=== PATIENT | male | born 1965 | race Caucasian/White ===

== ENCOUNTER 2017-08-19 20:35 | Observation (INO) | payer BC ==
--- NOTE | 2017-08-19 20:50 | EDM.PDOC ---
ED HPI GENERAL MEDICAL PROBLEM - General Chief Complaint: Chest Pain Stated Complaint: CHEST PRESSURE,SOB Time Seen by Provider: 08/19/17 20:50 Source of Information: Reports: Patient, Old Records, RN History Limitations: Reports: No Limitations - History of Present Illness INITIAL COMMENTS - FREE TEXT/NARRATIVE: 51 yo male presents with chest pressure since about 4 pm today. Mild SOB. Gets slight relief with rest. No change with eating. Had a heart cath 5+ yrs ago that was negative. Smokes 1 ppd. No hyperlipidemia or DM. FHx is positive for CAD. No calf pain or swelling. Worked hard outside yesterday without sx's. Onset of sx's today while watching TV. Onset: Today Onset Date: 08/19/17 Onset Time: 16:00 Duration: Hour(s): Location: Reports: Chest Quality: Reports: Pressure Severity: Moderate Improves with: Reports: Rest Worsens with: Reports: Movement (exertion) Context: Reports: Other (unknown) Associated Symptoms: Reports: Chest Pain, Shortness of Breath. 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) chest pain/pressure Pain Score (Numeric/FACES): 3 - Related Data Allergies Allergy/AdvReac Type Severity Reaction Status Date / Time No Known Allergies Allergy Verified 08/19/17 20:44 Home Meds: Home Meds Etanercept [Enbrel] 50 mg SQ WEEKLY 01/08/15 [History] Ibuprofen [Advil] 800 mg PO ASDIRECTED PRN 01/08/15 [History] Social & Family History - Tobacco Use Smoking Status *Q: Former Smoker Years of Tobacco use: 33 Used Tobacco, but Quit: No Month Tobacco Last Used: December Second Hand Smoke Exposure: No - Alcohol Use Days Per Week of Alcohol Use: 1 Number of Drinks Per Day: 2 Total Drinks Per Week: 2 - Recreational Drug Use Recreational Drug Use: No ED ROS GENERAL - Review of Systems Review Of Systems: See Below Constitutional: Reports: No Symptoms HEENT: Reports: No Symptoms Respiratory: Reports: Shortness of Breath (mild with exertion). Denies: Wheezing, Pleuritic Chest Pain, Cough, Sputum, Hemoptysis Cardiovascular: Reports: Chest Pain Endocrine: Reports: No Symptoms GI/Abdominal: Reports: No Symptoms : Reports: No Symptoms Musculoskeletal: Reports: No Symptoms Skin: Reports: No Symptoms Neurological: Reports: No Symptoms Psychiatric: Reports: No Symptoms ED EXAM, GENERAL - Physical Exam Exam: See Below Exam Limited By: No Limitations General Appearance: Alert, WD/WN, No Apparent Distress Eye Exam: Bilateral Eye: Normal Inspection Ears: Normal External Exam, Normal Canal, Hearing Grossly Normal Ear Exam: Bilateral Ear: Auricle Normal, Canal Normal Nose: Normal Inspection, Normal Mucosa, No Blood Throat/Mouth: Normal Inspection, Normal Lips, Normal Oropharynx, Normal Voice, No Airway Compromise Head: Atraumatic, Normocephalic Neck: Normal Inspection, Supple, Non-Tender Respiratory/Chest: No Respiratory Distress, Lungs Clear, Normal Breath Sounds, No Accessory Muscle Use, Chest Non-Tender Cardiovascular: Regular Rate, Rhythm, No Edema GI/Abdominal: Normal Bowel Sounds, Soft, Non-Tender, No Distention Back Exam: Normal Inspection. No: CVA Tenderness (R), CVA Tenderness (L) Extremities: Normal Inspection, Normal Range of Motion, Non-Tender, No Pedal Edema Neurological: Alert, Oriented, CN II-XII Intact, Normal Cognition, No Motor/ Sensory Deficits Psychiatric: Normal Affect, Normal Mood Skin Exam: Warm, Dry, Intact, Normal Color, No Rash Lymphatic: No Adenopathy EKG INTERPRETATION EKG Date: 08/19/17 Time: 20:40 Rhythm: NSR Rate (Beats/Min): 86 [place]: Normal P-Wave: Present QRS: Normal ST-T: Normal QT: Normal Comparison: NA - No Prior EKG EKG Interpretation Comments: Flipped T's in lead III, otherwise normal. 2nd EKG done after 3 x NTG 0.4 mg SL and a decrease in his CP from 3-4/10 to 1-2 /10, ? slightly less inversion of T wave in lead III, otherwise unchanged. Course - Vital Signs Text/Narrative:: No change with GI cocktail po, pain reduced, but not gone after NTG SL x 3. Dr. Villalobos called @ 2202h Last Recorded V/S: Last Vital Signs Temp 37.0 C 08/19/17 21:22 Pulse 88 08/19/17 22:46 Resp 16 08/19/17 22:11 BP 127/70 08/19/17 22:46 Pulse Ox 96 08/19/17 22:46 - Orders/Labs/Meds Orders: Active Orders 24 hr Category Date Time Status Cardiac Monitoring [RC] .As Directed Care 08/19/17 20:40 Active EKG Documentation Completion [RC] ASDIRECTED Care 08/19/17 20:39 Active EKG Documentation Completion [RC] ASDIRECTED Care 08/19/17 21:22 Active Chest 2V [CR] Stat Exams 08/19/17 21:44 Taken Sodium Chloride 0.9% [Saline Flush] Med 08/19/17 21:04 Active 10 ml FLUSH ASDIRECTED PRN Saline Lock Insert [OM.PC] Routine Oth 08/19/17 21:04 Ordered EKG 12 Lead [EK] Routine Ther 08/19/17 20:39 Ordered EKG 12 Lead [EK] Routine Ther 08/19/17 21:21 Ordered Medication Orders Sodium Chloride (Saline Flush) 10 ml FLUSH ASDIRECTED PRN PRN Reason: Keep Vein Open Last Admin: 08/19/17 21:08 Dose: 10 ml Labs: Laboratory Tests 08/19/17 08/19/17 08/19/17 Range/Units 21:12 21:12 21:12 WBC 9.7 (4.5-11.0) K/uL RBC 4.72 (4.30-5.90) M/uL Hgb 13.7 (12.0-15.0) g/dL Hct 39.4 L (40.0-54.0) % MCV 84 (80-98) fL MCH 29 (27-31) pg MCHC 35 (32-36) % Plt Count 261 (150-400) K/uL Sodium 141 (140-148) mmol/L Potassium 3.9 (3.6-5.2) mmol/L Chloride 107 (100-108) mmol/L Carbon Dioxide 26 (21-32) mmol/L Anion Gap 7.8 (5.0-14.0) mmol/L BUN 22 H (7-18) mg/dL Creatinine 1.1 (0.8-1.3) mg/dL Est Cr Clr Drug Dosing 93.41 mL/min Estimated GFR (MDRD) > 60 (>60) Glucose 145 H (74-106) mg/dL Calcium 8.9 (8.5-10.1) mg/dL Troponin I < 0.017 (0.000-0.056) ng/mL Urine Color Urine Appearance Urine pH (4.5-8.0) Ur Specific [place] (1.008-1.030) Urine Protein (NEGATIVE) mg/dL Urine Glucose (UA) (NEGATIVE) mg/dL Urine Ketones (NEGATIVE) mg/dL Urine Occult Blood (NEGATIVE) Urine Nitrite (NEGAITVE) Urine Bilirubin (NEGATIVE) Urine Urobilinogen (NORMAL) mg/dL Ur Leukocyte Esterase (NEGATIVE) Urine RBC (0-5) Urine WBC (0-5) Ur Epithelial Cells Amorphous Sediment Urine Bacteria Urine Mucus 08/19/17 Range/Units 21:35 WBC (4.5-11.0) K/uL RBC (4.30-5.90) M/uL Hgb (12.0-15.0) g/dL Hct (40.0-54.0) % MCV (80-98) fL MCH (27-31) pg MCHC (32-36) % Plt Count (150-400) K/uL Sodium (140-148) mmol/L Potassium (3.6-5.2) mmol/L Chloride (100-108) mmol/L Carbon Dioxide (21-32) mmol/L Anion Gap (5.0-14.0) mmol/L BUN (7-18) mg/dL Creatinine (0.8-1.3) mg/dL Est Cr Clr Drug Dosing mL/min Estimated GFR (MDRD) (>60) Glucose (74-106) mg/dL Calcium (8.5-10.1) mg/dL Troponin I (0.000-0.056) ng/mL Urine Color Yellow Urine Appearance Clear Urine pH 6.0 (4.5-8.0) Ur Specific [place] 1.025 (1.008-1.030) Urine Protein Negative (NEGATIVE) mg/dL Urine Glucose (UA) Normal (NEGATIVE) mg/dL Urine Ketones Negative (NEGATIVE) mg/dL Urine Occult Blood Negative (NEGATIVE) Urine Nitrite Negative (NEGAITVE) Urine Bilirubin Negative (NEGATIVE) Urine Urobilinogen Normal (NORMAL) mg/dL Ur Leukocyte Esterase Negative (NEGATIVE) Urine RBC 0-5 (0-5) Urine WBC 0-5 (0-5) Ur Epithelial Cells Rare Amorphous Sediment Not seen Urine Bacteria Not seen Urine Mucus Not seen Meds: Medications Generic Name Dose Route Start Last Admin Trade Name Freq PRN Reason Stop Dose Admin Sodium Chloride 10 ml 11/19/17 21:04 08/19/17 21:08 Saline Flush FLUSH 10 ml ASDIRECTED PRN Administration Keep Vein Open Discontinued Medications Generic Name Dose Route Start Last Admin Trade Name Fabricio PRN Reason Stop Dose Admin Acetaminophen 1,000 mg 08/19/17 21:20 08/19/17 21:25 Tylenol Extra Strength PO 08/19/17 21:21 1,000 mg ONETIME ONE Administration Aspirin 324 mg 08/19/17 21:03 08/19/17 21:06 Aspirin PO 08/19/17 21:04 324 mg ONETIME ONE Administration Aspirin Confirm 08/19/17 21:05 08/19/17 21:09 Aspirin Administered 08/19/17 21:06 Not Given Dose 324 mg .ROUTE .STK-MED ONE Al Hydroxide/Mg Hydroxide 15 0 ml 08/19/17 21:46 08/19/17 21:54 ml/ Lidocaine HCl 15 ml PO 08/19/17 21:47 30 ml ONETIME ONE Administration Nitroglycerin 0.4 mg 08/19/17 21:04 08/19/17 21:22 Nitrostat SL 0.4 mg Q5M PRN Administration Chest Pain Nitroglycerin Confirm 08/19/17 21:06 08/19/17 21:09 Nitrostat Administered 08/19/17 21:07 Not Given Dose 0.4 mg .ROUTE .STK-MED ONE Nitroglycerin 1 gm 08/19/17 22:16 08/19/17 22:25 Nitro-Bid 2% TOP 08/19/17 22:17 1 gm ONETIME ONE Administration Nitroglycerin 0.4 mg 08/19/17 22:16 08/19/17 22:18 Nitrostat SL 08/19/17 22:17 0.4 mg ONETIME ONE Administration - Radiology Interpretation Free Text/Narrative:: CXR- Departure - Departure Time of Disposition: 23:00 Disposition: Refer to Observation Condition: Fair Clinical Impression: Tobacco abuse Chest pain Qualifiers: Chest pain type: precordial pain Qualified Code(s): R07.2 - Precordial pain Referrals: Abdiel Trammell MD [Primary Care Provider] - Forms: ED Department Discharge - My Orders Last 24 Hours: My Active Orders 08/19/17 20:39 EKG Documentation Completion [RC] ASDIRECTED EKG 12 Lead [EK] Routine 08/19/17 20:40 Cardiac Monitoring [RC] .As Directed 08/19/17 21:04 Sodium Chloride 0.9% [Saline Flush] 10 ml FLUSH ASDIRECTED PRN Saline Lock Insert [OM.PC] Routine 08/19/17 21:21 EKG 12 Lead [EK] Routine 08/19/17 21:22 EKG Documentation Completion [RC] ASDIRECTED 08/19/17 21:44 Chest 2V [CR] Stat - Assessment/Plan Last 24 Hours: My Active Orders 08/19/17 20:39 EKG Documentation Completion [RC] ASDIRECTED EKG 12 Lead [EK] Routine 08/19/17 20:40 Cardiac Monitoring [RC] .As Directed 08/19/17 21:04 Sodium Chloride 0.9% [Saline Flush] 10 ml FLUSH ASDIRECTED PRN Saline Lock Insert [OM.PC] Routine 08/19/17 21:21 EKG 12 Lead [EK] Routine 08/19/17 21:22 EKG Documentation Completion [RC] ASDIRECTED 08/19/17 21:44 Chest 2V [CR] Stat
[2017-08-19] MEDS ORDERED: Aspirin 81 MG Tab.Chew PO ONE (21:03)
[2017-08-19] MEDS ORDERED: Sodium Chloride 0.9% 10 ML Syringe FLUSH PRN (21:04)
[2017-08-19] MEDS ORDERED: Aspirin 81 MG Tab.Chew ONE (21:05)
[2017-08-19] MEDS: Nitroglycerin 0.4 MG Tab.SL SL PRN ×3 (21:07→21:22)
[2017-08-19] MEDS: Nitroglycerin 0.4 MG Tab.SL ONE ×2 (21:09→21:17)
[2017-08-19] MEDS ORDERED: Acetaminophen 500 MG Tab PO ONE (21:20)
[2017-08-19] MEDS ORDERED: Alum Hydrox/Mag Hydrox/Simeth 15 ML, Lidocaine 2% 15 ML PO ONE ×2 (21:46)
[2017-08-19] MEDS ORDERED: Nitroglycerin 0.4 MG Tab.SL SL ONE (22:16)
[2017-08-19] MEDS ORDERED: Nitroglycerin 2% Oint 1 GM UD Packet TOP ONE (22:16)
[2017-08-19] MEDS ORDERED: Ondansetron 4 MG Tab.DIS PO PRN (23:04)
[2017-08-19] MEDS ORDERED: Acetaminophen 325 MG Tab PO PRN (23:04)
--- NOTE | 2017-08-19 23:04 | PCM.HP ---
H&P History of Present Illness - General Date of Service: 08/19/17 Admit Problem/Dx: Chest pain Source of Information: Patient History Limitations: Reports: No Limitations - History of Present Illness Initial Comments - Free Text/Narative: 51-year-old male with past medical history of premature arthritis on etanercept medication came to the ED with the complaining of chest pain. Chest pain started around 4 PM constantly present 3-4/10 in intensity, pressure-like pain no radiation patient had similar chest pains 5 years ago at the time patient was evaluated with the concerns of cardiac ID at that time patient angiogram results were within normal limit. Patient denies any previous history of hypertension, hyperlipidemia. Patient has family history of early CAD. Patient denies any joint pains, skin rash, recent flareup of rheumatoid arthritis. Patient denies any recent cough, congestion, runny nose. Patient denies pain increase with the respiratory movements. Patient is a full code In the ED patient EKG showed nonspecific ST T wave changes and troponins were within normal limits. Labs are at baseline. Patient received nitroglycerin, aspirin medication. Other review of systems are not significant chest pain/pressure Pain Score (Numeric/FACES): 3 - Related Data Allergies/Adverse Reactions: Allergies Allergy/AdvReac Type Severity Reaction Status Date / Time No Known Allergies Allergy Verified 08/19/17 20:44 Home Medications: Home Meds Etanercept [Enbrel] 50 mg SQ WEEKLY 01/08/15 [History] Ibuprofen [Advil] 800 mg PO ASDIRECTED PRN 01/08/15 [History] Past Medical History HEENT History: Reports: Impaired Vision Musculoskeletal History: Reports: RA Neurological History: Reports: Migraines Endocrine/Metabolic History: Reports: Other (See Below) Other Endocrine/Metabolic History: Thymic gland removed - Infectious Disease History Infectious Disease History: Reports: Chicken Pox, Mumps - Past Surgical History Cardiovascular Surgical History: Reports: Percutaneous Transluminal Angioplasty GI Surgical History: Reports: Hernia Repair/Other Musculoskeletal Surgical History: Reports: Arthroscopic Knee Social & Family History - Tobacco Use Smoking Status *Q: Former Smoker Years of Tobacco use: 33 Packs/Tins Daily: 1 Used Tobacco, but Quit: No Month Tobacco Last Used: December Second Hand Smoke Exposure: No - Caffeine Use Caffeine Use: Reports: Coffee, Soda - Alcohol Use Days Per Week of Alcohol Use: 1 Number of Drinks Per Day: 2 Total Drinks Per Week: 2 - Recreational Drug Use Recreational Drug Use: No H&P Review of Systems - Review of Systems: Review Of Systems: See Below General: Denies: Fever, Chills, Malaise HEENT: Denies: Contact Lenses, Dysphasia Pulmonary: Denies: Shortness of Breath, Wheezing, Pleuritic Chest Pain Cardiovascular: Reports: Chest Pain. Denies: Palpitations, Dyspnea on Exertion Gastrointestinal: Denies: Abdominal Pain, Anorexia, Black Stool Genitourinary: Denies: Dysuria, Frequency Musculoskeletal: Denies: Neck Pain, Shoulder Pain Skin: Denies: Cyanosis, Jaundice Psychiatric: Denies: Confusion, Depression Neurological: Denies: Confusion, Dizziness, Headache Hematologic/Lymphatic: Denies: Anemia, Easy Bleeding Immunologic: Denies: Anaphylaxis Exam - Exam Exam: See Below - Vital Signs Vital Signs: Last Vital Signs Temp 37.0 C 08/19/17 21:22 Pulse 88 08/19/17 22:46 Resp 16 08/19/17 22:11 BP 127/70 08/19/17 22:46 Pulse Ox 96 08/19/17 22:46 Weight: 108.862 kg - Exam Quality Assessment: No: Supplemental Oxygen General: Alert, Oriented HEENT: PERRLA, Conjunctiva Clear Neck: Supple, Trachea Midline Lungs: Clear to Auscultation, Normal Respiratory Effort Cardiovascular: Regular Rate, Regular Rhythm, Normal S1, Normal S2 GI/Abdominal Exam: Normal Bowel Sounds, Soft, Non-Tender, No Organomegaly Extremities: Normal Inspection, Normal Range of Motion, Non-Tender, No Pedal Edema, Normal Capillary Refill Skin: Warm, Dry, Intact Neuro Extensive - Mental Status: Alert, Oriented x3, Normal Mood/Affect, Normal Cognition, Memory Intact - Patient Data Lab Results Last 24 hrs: Laboratory Results - last 24 hr 08/19/17 08/19/17 08/19/17 Range/Units 21:12 21:12 21:12 WBC 9.7 (4.5-11.0) K/uL RBC 4.72 (4.30-5.90) M/uL Hgb 13.7 (12.0-15.0) g/dL Hct 39.4 L (40.0-54.0) % MCV 84 (80-98) fL MCH 29 (27-31) pg MCHC 35 (32-36) % Plt Count 261 (150-400) K/uL Sodium 141 (140-148) mmol/L Potassium 3.9 (3.6-5.2) mmol/L Chloride 107 (100-108) mmol/L Carbon Dioxide 26 (21-32) mmol/L Anion Gap 7.8 (5.0-14.0) mmol/L BUN 22 H (7-18) mg/dL Creatinine 1.1 (0.8-1.3) mg/dL Est Cr Clr Drug Dosing 93.41 mL/min Estimated GFR (MDRD) > 60 (>60) Glucose 145 H (74-106) mg/dL Calcium 8.9 (8.5-10.1) mg/dL Troponin I < 0.017 (0.000-0.056) ng/mL Urine Color Urine Appearance Urine pH (4.5-8.0) Ur Specific [place] (1.008-1.030) Urine Protein (NEGATIVE) mg/dL Urine Glucose (UA) (NEGATIVE) mg/dL Urine Ketones (NEGATIVE) mg/dL Urine Occult Blood (NEGATIVE) Urine Nitrite (NEGAITVE) Urine Bilirubin (NEGATIVE) Urine Urobilinogen (NORMAL) mg/dL Ur Leukocyte Esterase (NEGATIVE) Urine RBC (0-5) Urine WBC (0-5) Ur Epithelial Cells Amorphous Sediment Urine Bacteria Urine Mucus 08/19/17 Range/Units 21:35 WBC (4.5-11.0) K/uL RBC (4.30-5.90) M/uL Hgb (12.0-15.0) g/dL Hct (40.0-54.0) % MCV (80-98) fL MCH (27-31) pg MCHC (32-36) % Plt Count (150-400) K/uL Sodium (140-148) mmol/L Potassium (3.6-5.2) mmol/L Chloride (100-108) mmol/L Carbon Dioxide (21-32) mmol/L Anion Gap (5.0-14.0) mmol/L BUN (7-18) mg/dL Creatinine (0.8-1.3) mg/dL Est Cr Clr Drug Dosing mL/min Estimated GFR (MDRD) (>60) Glucose (74-106) mg/dL Calcium (8.5-10.1) mg/dL Troponin I (0.000-0.056) ng/mL Urine Color Yellow Urine Appearance Clear Urine pH 6.0 (4.5-8.0) Ur Specific [place] 1.025 (1.008-1.030) Urine Protein Negative (NEGATIVE) mg/dL Urine Glucose (UA) Normal (NEGATIVE) mg/dL Urine Ketones Negative (NEGATIVE) mg/dL Urine Occult Blood Negative (NEGATIVE) Urine Nitrite Negative (NEGAITVE) Urine Bilirubin Negative (NEGATIVE) Urine Urobilinogen Normal (NORMAL) mg/dL Ur Leukocyte Esterase Negative (NEGATIVE) Urine RBC 0-5 (0-5) Urine WBC 0-5 (0-5) Ur Epithelial Cells Rare Amorphous Sediment Not seen Urine Bacteria Not seen Urine Mucus Not seen Result Diagrams: 08/20/17 05:50 08/20/17 05:50 *Q Meaningful Use (ADM) - VTE *Q VTE Criteria *Q: - Stroke *Q Stroke Criteria *Q: - AMI *Q AMI Criteria *Q: - Problem List (1) Rheumatoid arthritis SNOMED Code(s): 71524065 ICD Code: M06.9 - RHEUMATOID ARTHRITIS, UNSPECIFIED Status: Acute Current Visit: Yes (2) Chest pain SNOMED Code(s): 76418844 ICD Code: R07.9 - CHEST PAIN, UNSPECIFIED Status: Acute Current Visit: Yes Qualifiers: Chest pain type: precordial pain Qualified Code(s): R07.2 - Precordial pain (3) Chronic migraine without aura SNOMED Code(s): 35233752 ICD Code: G43.709 - CHRONIC MIGRAINE W/O AURA, NOT INTRACTABLE, W/O STAT MIGR Status: Chronic Current Visit: No (4) Tobacco abuse SNOMED Code(s): 091136706 ICD Code: Z72.0 - TOBACCO USE Status: Chronic Current Visit: No Problem List Initiated/Reviewed/Updated: Yes Orders Last 24hrs: Active Orders 24 hr Category Date Time Status Cardiac Monitoring [RC] .As Directed Care 08/19/17 20:40 Active EKG Documentation Completion [RC] ASDIRECTED Care 08/19/17 20:39 Active EKG Documentation Completion [RC] ASDIRECTED Care 08/19/17 21:22 Active Chest 2V [CR] Stat Exams 08/19/17 21:44 Taken Sodium Chloride 0.9% [Saline Flush] Med 08/19/17 21:04 Active 10 ml FLUSH ASDIRECTED PRN Saline Lock Insert [OM.PC] Routine Oth 08/19/17 21:04 Ordered EKG 12 Lead [EK] Routine Ther 08/19/17 20:39 Ordered EKG 12 Lead [EK] Routine Ther 08/19/17 21:21 Ordered Medication Orders Sodium Chloride (Saline Flush) 10 ml FLUSH ASDIRECTED PRN PRN Reason: Keep Vein Open Last Admin: 08/19/17 21:08 Dose: 10 ml Assessment/Plan Comment:: 51-year-old male with a past medical history of rheumatoid arthritis came to the ED with the complaining of chest pain admitted in the hospital in observation status for the concerns of CAD. (2) Chest pain (1) Rheumatoid arthritis (4) Tobacco abuse Patient initial troponins were within normal limits We'll repeat troponin along with CK-MB Electrolytes results are within normal limits Creatinine is baseline Nonspecific ST-T wave changes Patient still complaining of chest pains Will place him on morphine as needed Tylenol as needed for breakthrough pains CBC, CMP tomorrow along with lipid panel and TSH (3) Chronic migraine without aura Will continue home medications DVT prophylaxis Lovenox 40 mg subcutaneous daily GI prophylaxis none CODE STATUS full code Diet cardiac diet
[2017-08-19] MEDS ORDERED: Morphine 2 MG/ML Syringe IVPUSH PRN (23:17)
[2017-08-20] MEDS ORDERED: Enoxaparin 40 MG/0.4 ML Syringe SUBCUT SCH (09:00)
[2017-08-20] MEDS ORDERED: Aspirin 81 MG Tab.EC PO SCH (09:00)
--- NOTE | 2017-08-20 10:16 | CR ---
Chest 2V HISTORY: Chest pain COMPARISON: 11/12/2011 chest x-ray. FINDINGS: Median sternotomy. Rotated film to the right. Density in the right middle lobe slightly obs curing the right heart border. This was present on prior study 2011 likely represents chronic atelect atic changes or scarring. There is bullous emphysematous changes at both lung apices also present on 2012 CT scan. I do not see new dense consolidation or effusion. Impression: Probable chronic scarring or atelectatic change in the right middle lobe. COPD changes.
[2017-08-20 10:58] VITALS: BP 143/80
--- NOTE | 2017-08-20 12:47 | PCM.DCSUM1 ---
Discharge Summary - Hospital Course Brief History: 51-year-old male with history of rheumatoid arthritis and tobacco dependence who presented with chest pain and was admitted for observation. - Discharge Data Discharge Date: 08/20/17 Discharge Disposition: Home, Self-Care 01 Condition: Good - Discharge Diagnosis/Problem(s) (1) Chest pain SNOMED Code(s): 16455604 ICD Code: R07.9 - CHEST PAIN, UNSPECIFIED Status: Acute Qualifiers: Chest pain type: precordial pain Qualified Code(s): R07.2 - Precordial pain (2) Rheumatoid arthritis SNOMED Code(s): 41333280 ICD Code: M06.9 - RHEUMATOID ARTHRITIS, UNSPECIFIED Status: Chronic Qualifiers: Rheumatoid arthritis location: unspecified site Rheumatoid factor presence : unspecified presence Qualified Code(s): M06.9 - Rheumatoid arthritis, unspecified - Patient Summary/Data Hospital Course: Angelito presented to the emergency room with chest pressure. Workup in the emergency room was reassuring with a normal EKG and normal troponin but given his concerning story he was admitted for observation and additional troponin levels. He was not completely pain-free at the time of admission but his pain was very mild. He reports fairly constant but mild discomfort present all night and even into this morning. The pain does not change with activity while he's been hospitalized. Serial troponin levels have been undetectable. No abnormalities were noted on telemetry. Vital signs have all been very stable with blood pressures and heart rates well within normal range. The exact cause for his discomfort is not entirely clear. He does have a couple of episodes recently that were related to exertion and given his smoking and family history risk he would benefit from additional risk stratification. I do believe he is safe for outpatient management at this point and can come back for an outpatient stress test because he is stable and doing well with no exertional symptoms. He is set up for an exercise Cardiolite stress test in 2 days. He will contact me if he has additional difficulties between now and the stress test. - Patient Instructions Diet: Regular Diet as Tolerated Activity: As Tolerated Driving: May Drive Today Showering/Bathing: May Shower Notify Provider of: Fever, Increased Pain, Nausea and/or Vomiting Other/Special Instructions: 1. You were in the hospital for observation after an episode of chest pain. There was no evidence that she had heart attack. I do recommend that you have further evaluation with a stress test and we have scheduled one for you on August 22 at 8:15 in the morning. 2. You may return to work tomorrow, August 21 with no restrictions. 3. Please seek medical attention if you have fever greater than 101, have worsening of your pain or shortness of breath that limits your activities of daily living. - Discharge Plan Home Medications: Home Meds Etanercept [Enbrel] 50 mg SQ WEEKLY 01/08/15 [History] Ibuprofen [Advil] 800 mg PO ASDIRECTED PRN 01/08/15 [History] Patient Handouts: Smoking Cessation, Tips for Success, [id number], Nonspecific Chest Pain Referrals: Abdiel Trammell MD [Primary Care Provider] - (as needed) - Discharge Summary/Plan Comment DC Time >30 min.: No (25) - Patient Data Vitals - Most Recent: Last Vital Signs Temp 36.6 C 08/20/17 10:57 Pulse 73 08/20/17 10:57 Resp 18 08/20/17 10:57 BP 143/80 H 08/20/17 10:57 Pulse Ox 95 08/20/17 10:57 Weight - Most Recent: 108.862 kg I&O - Last 24 hours: Intake & Output 08/19/17 08/20/17 08/20/17 22:59 06:59 14:59 Intake Total 480 Balance 480 Lab Results - Last 24 hrs: Laboratory Results - last 24 hr 08/20/17 08/20/17 08/20/17 Range/Units 01:02 05:50 05:50 WBC 8.0 (4.5-11.0) K/uL RBC 4.65 (4.30-5.90) M/uL Hgb 13.6 (12.0-15.0) g/dL Hct 39.0 L (40.0-54.0) % MCV 84 (80-98) fL MCH 29 (27-31) pg MCHC 35 (32-36) % Plt Count 263 (150-400) K/uL Neut % (Auto) 61 (36-66) % Lymph % (Auto) 29 (24-44) % [place] % (Auto) 7 H (2-6) % Eos % (Auto) 3 (2-4) % Baso % (Auto) 1 (0-1) % Sodium 139 L (140-148) mmol/L Potassium 3.8 (3.6-5.2) mmol/L Chloride 105 (100-108) mmol/L Carbon Dioxide 25 (21-32) mmol/L Anion Gap 12.8 (5.0-14.0) mmol/L BUN 20 H (7-18) mg/dL Creatinine 0.9 (0.8-1.3) mg/dL Est Cr Clr Drug Dosing 114.17 mL/min Estimated GFR (MDRD) > 60 (>60) Glucose 140 H (74-106) mg/dL Calcium 8.1 L (8.5-10.1) mg/dL Total Bilirubin 0.2 (0.2-1.0) mg/dL AST 20 (15-37) U/L ALT 34 (12-78) U/L Alkaline Phosphatase 65 (46-116) U/L CK-MB (CK-2) 1.4 (0-3.6) mg/mL Troponin I < 0.017 (0.000-0.056) ng/mL Total Protein 6.6 (6.4-8.2) g/dL Albumin 3.1 L (3.4-5.0) g/dL Globulin 3.5 (2.3-3.5) g/dL Albumin/Globulin Ratio 0.9 L (1.2-2.2) Triglycerides 167 H (15-150) mg/dL Cholesterol 148 (0-200) mg/dL LDL Cholesterol Direct 105 H (0-100) mg/dL HDL Cholesterol 27 L (40-60) mg/dL TSH, Ultra Sensitive 3.689 (0.358-3.740) uIU/mL Med Orders - Current: Current Medications Acetaminophen (Tylenol) 650 mg PO Q4H PRN PRN Reason: Pain (Mild 1-3)/fever Aspirin (Halfprin) 81 mg PO DAILY [facility] Last Admin: 08/20/17 09:34 Dose: 81 mg Enoxaparin Sodium (Lovenox) 40 mg SUBCUT DAILY [facility] Last Admin: 08/20/17 09:34 Dose: 40 mg Morphine Sulfate (Morphine) 1 mg IVPUSH Q4H PRN PRN Reason: Pain/Fever Ondansetron HCl (Zofran Odt) 4 mg PO Q6H PRN PRN Reason: Nausea able to take PO Sodium Chloride (Saline Flush) 10 ml FLUSH ASDIRECTED PRN PRN Reason: Keep Vein Open Last Admin: 08/19/17 21:08 Dose: 10 ml Discontinued Medications Acetaminophen (Tylenol Extra Strength) 1,000 mg PO ONETIME ONE Stop: 08/19/17 21:21 Last Admin: 08/19/17 21:25 Dose: 1,000 mg Aspirin (Aspirin) 324 mg PO ONETIME ONE Stop: 08/19/17 21:04 Last Admin: 08/19/17 21:06 Dose: 324 mg Aspirin (Aspirin) Confirm Administered Dose 324 mg .ROUTE .STK-MED ONE Stop: 08/19/17 21:06 Last Admin: 08/19/17 21:09 Dose: Not Given Al Hydroxide/Mg Hydroxide 15 (ml/ Lidocaine HCl 15 ml) 0 ml PO ONETIME ONE Stop: 08/19/17 21:47 Last Admin: 08/19/17 21:54 Dose: 30 ml Nitroglycerin (Nitrostat) 0.4 mg SL Q5M PRN PRN Reason: Chest Pain Last Admin: 08/19/17 21:22 Dose: 0.4 mg Nitroglycerin (Nitrostat) Confirm Administered Dose 0.4 mg .ROUTE .STK-MED ONE Stop: 08/19/17 21:07 Last Admin: 08/19/17 21:09 Dose: Not Given Nitroglycerin (Nitro-Bid 2%) 1 gm TOP ONETIME ONE Stop: 08/19/17 22:17 Last Admin: 08/19/17 22:25 Dose: 1 gm Nitroglycerin (Nitrostat) 0.4 mg SL ONETIME ONE Stop: 08/19/17 22:17 Last Admin: 08/19/17 22:18 Dose: 0.4 mg - Exam Quality Assessment: Denies: Supplemental Oxygen General: Reports: Alert, Oriented, Cooperative, No Acute Distress Lungs: Reports: Normal Respiratory Effort GI/Abdominal Exam: No Distention Extremities: No Pedal Edema Psy/Mental Status: Reports: Alert, Normal Affect *Q Meaningful Use (DIS) - VTE *Q VTE Criteria *Q: - Stroke *Q Stroke Criteria *Q: - AMI *Q AMI Criteria *Q:
== END 2017-08-20 13:28 | disposition home or self-care (01) ==
LOC: JP.ED 20:35 → JP.MS 23:05
PROVIDERS: ADMIT Family Medicine; ATTEND Internal Medicine
DX: R07.2 Precordial pain (principal); M06.9 Rheumatoid arthritis, unspecified; Z79.899 Other long term (current) drug therapy; Z87.891 Personal history of nicotine dependence; Z98.61 Coronary angioplasty status
CPT/HCPCS: 36415; 71020; 80048; 80053; 80061; 81001; 82553; 84443; 84484; 85025; 85027; 93005; 99285; A9270; J1650; J7050; 96372; G0378

== ENCOUNTER 2020-01-11 13:04 | Emergency (ER) | payer BC, OTHER ==
--- NOTE | 2020-01-11 13:51 | EDM.PDOC ---
ED HPI GENERAL MEDICAL PROBLEM - General Chief Complaint: Respiratory Problem Stated Complaint: SOB Time Seen by Provider: 01/11/20 13:10 Source of Information: Reports: Patient History Limitations: Reports: No Limitations - History of Present Illness INITIAL COMMENTS - FREE TEXT/NARRATIVE: This is a 54-year-old male with history of prior right upper lobe pneumonectomy and RA on immunosuppression who presents with shortness of breath. He reports symptoms have been somewhat insidious in onset over the past week. He has been getting outside to do some work around his home, hauling logs and lifting, when he noticed his exercise tolerance was not as good as it typically is. He is now noticing that when he goes up steps he becomes winded. He has no associated chest pain. He did have some mild discomfort in the left side of his chest when he was laying in bed the other night. He has a stable, non- productive cough. He has no fevers. He has no history of cardiac disease, about 5 years ago had a normal cardiac catheterization and several years ago a normal nuclear stress test. He has also noted some mild pitting edema of the lower extremities this week, he has intermittently had this in the past. He is a former smoker. - Related Data Allergies Allergy/AdvReac Type Severity Reaction Status Date / Time No Known Allergies Allergy Verified 01/11/20 13:20 Home Meds: Home Meds Etanercept [Enbrel] 50 mg SQ WEEKLY 01/08/15 [History] Furosemide [Lasix] 20 mg PO DAILY #14 tab 01/11/20 [Rx] Past Medical History HEENT History: Reports: Impaired Vision Cardiovascular History: Reports: Other (See Below) Other Cardiovascular History: chest pains. Other Respiratory History: pneumonia twice and pleuracy twice, both years ago. Musculoskeletal History: Reports: RA Other Musculoskeletal History: Fell and injured lower back (pt not sure of exact date) Neurological History: Reports: Migraines Endocrine/Metabolic History: Reports: Other (See Below) Other Endocrine/Metabolic History: Thymic gland removed - Infectious Disease History Infectious Disease History: Reports: Chicken Pox, Mumps - Past Surgical History Cardiovascular Surgical History: Reports: Percutaneous Transluminal Angioplasty Respiratory Surgical History: Reports: Lung Resection Other Respiratory Surgeries/Procedures: removal of part of lung, thymic gland and lymph nodes. GI Surgical History: Reports: Hernia Repair/Other Musculoskeletal Surgical History: Reports: Arthroscopic Knee Social & Family History - Family History Cardiac: Reports: [place] Other Cardiac Family History: Many family members have from heart attacks, heart failure, and other heart issues. Brother had massive heart attack at 56yo. - Tobacco Use Smoking Status *Q: Former Smoker Used Tobacco, but Quit: Yes Month/Year Tobacco Last Used: 2016 - Caffeine Use Caffeine Use: Reports: Coffee Other Caffeine Use: 8 cups per day - Recreational Drug Use Recreational Drug Use: No ED ROS GENERAL - Review of Systems Review Of Systems: See Below Constitutional: Reports: No Symptoms. Denies: Fever, Chills HEENT: Reports: No Symptoms Respiratory: Reports: Shortness of Breath Cardiovascular: Reports: No Symptoms, Chest Pain, Edema Endocrine: Reports: No Symptoms GI/Abdominal: Reports: No Symptoms : Reports: No Symptoms Musculoskeletal: Reports: No Symptoms Skin: Reports: No Symptoms Neurological: Reports: No Symptoms Psychiatric: Reports: No Symptoms Hematologic/Lymphatic: Reports: No Symptoms Immunologic: Reports: No Symptoms ED EXAM, GENERAL - Physical Exam Exam: See Below Exam Limited By: No Limitations General Appearance: Alert, No Apparent Distress Nose: Normal Inspection Throat/Mouth: Normal Inspection Head: Atraumatic, Normocephalic Neck: Normal Inspection Respiratory/Chest: Lungs Clear. No: Rhonchi, Wheezing Cardiovascular: Regular Rate, Rhythm, No Murmur GI/Abdominal: Soft, Non-Tender Back Exam: Normal Inspection Extremities: Pedal Edema (mild pitting edema bilaterally) Neurological: Alert, Oriented Psychiatric: Normal Affect, Normal Mood Skin Exam: Warm, Dry Course - Vital Signs Last Recorded V/S: Last Vital Signs Temp 37.4 C 01/11/20 13:19 Pulse 83 01/11/20 14:19 Resp 16 01/11/20 14:19 BP 141/86 H 01/11/20 14:19 Pulse Ox 96 01/11/20 14:19 - Orders/Labs/Meds Orders: Active Orders 24 hr Category Date Time Status EKG Documentation Completion [RC] ASDIRECTED Care 01/11/20 13:12 Active CXR [Chest 2V] [CR] Stat Exams 01/11/20 13:13 Taken EKG 12 Lead [EK] Routine Ther 01/11/20 13:12 Ordered Labs: Laboratory Tests 01/11/20 01/11/20 01/11/20 Range/Units 13:27 13:27 13:27 WBC 6.0 (4.5-11.0) K/uL RBC 4.62 (4.30-5.90) M/uL Hgb 13.3 (12.0-15.0) g/dL Hct 38.1 L (40.0-54.0) % MCV 83 (80-98) fL MCH 29 (27-31) pg MCHC 35 (32-36) % Plt Count 217 (150-400) K/uL Neut % (Auto) 56 (36-66) % Lymph % (Auto) 34 (24-44) % [place] % (Auto) 8 H (2-6) % Eos % (Auto) 2 (2-4) % Baso % (Auto) 1 (0-1) % Sodium 140 (140-148) mmol/L Potassium 3.9 (3.6-5.2) mmol/L Chloride 104 (100-108) mmol/L Carbon Dioxide 26 (21-32) mmol/L Anion Gap 10.1 (5.0-14.0) mmol/L BUN 13 (7-18) mg/dL Creatinine 1.1 (0.8-1.3) mg/dL Est Cr Clr Drug Dosing TNP Estimated GFR (MDRD) > 60 (>60) Glucose 189 H (74-106) mg/dL Calcium 8.5 (8.5-10.1) mg/dL Troponin I < 0.017 (0.000-0.056) ng/mL NT-Pro-B Natriuret Pep 52 (5-125) pg/mL - Re-Assessments/Exams Free Text/Narrative Re-Assessment/Exam: This is a 54-year-old who presents with concerns of dyspnea. His medical history is significant for prior partial pneumonectomy as well as immunosuppressive use. On exam he is found to have normal vitals. He is sating appropriately on room air. Pulmonary exam is unremarkable. I do note mild bilateral pitting pedal edema. His chest x-ray is stable from prior exam on my wet read. Bedside ultrasound was performed and showed normal left ventricular ejection fraction, no pericardial effusion, no RV enlargement. He was noted to have bilateral B-lines , possibly indicative of pulmonary edema or just due to his prior surgery/ structural lung disease. EKG is nonischemic and unchanged from prior. Labs are remarkable for a normal BNP, negative troponin, unremarkable CBC and BMP. I did not think his symptoms are due to an acute coronary syndrome. PE seems unlikely. He has no infectious symptoms or lab suggestive of this. No history of COPD or wheezing on exam to suggest this, though he is a smoker. With negative BNP it seems unlikely this is heart failure, however it is difficult to ignore his pedal edema as well as his subtle ultrasound findings. The patient would like to do a trial of a diuretic, which I think is reasonable. We will start him on 20 mg daily of Lasix. I have also ordered him a formal echocardiogram this week. He will plan to follow up with his PCP at the end of the week to review the results of his echo and reevaluate his diuretic use - referral placed. Discharged. 01/11/20 14:34 Departure - Departure Time of Disposition: 14:13 Disposition: Home, Self-Care 01 Clinical Impression: Shortness of breath - Discharge Information Prescriptions: Furosemide [Lasix] 20 mg PO DAILY #14 tab Instructions: Shortness of Breath, Adult Referrals: PCP,None [Primary Care Provider] - Forms: ED Department Discharge Additional Instructions: Please take the prescribed furosemide and follow up with your primary doctor to review your echo and symptoms as discussed. Please return to the ER if your symptoms worsen. Sepsis Event Note - Evaluation Sepsis Screening Result: No Definite Risk - Focused Exam Vital Signs: Vital Signs Temp Pulse Resp BP Pulse Ox 01/11/20 14:19 83 16 141/86 H 96 01/11/20 13:19 37.4 C 86 19 146/80 H 97 Date Exam was Performed: 01/11/20 Time Exam was Performed: 14:27 - My Orders Last 24 Hours: My Active Orders 01/11/20 13:12 EKG Documentation Completion [RC] ASDIRECTED EKG 12 Lead [EK] Routine 01/11/20 13:13 CXR [Chest 2V] [CR] Stat - Assessment/Plan Last 24 Hours: My Active Orders 01/11/20 13:12 EKG Documentation Completion [RC] ASDIRECTED EKG 12 Lead [EK] Routine 01/11/20 13:13 CXR [Chest 2V] [CR] Stat
[2020-01-11 14:19] VITALS: BP 141/86; PULSE 83
--- NOTE | 2020-01-12 11:01 | CR ---
CHEST: 2 view CLINICAL HISTORY:Dyspnea COMPARISON:2017 FINDINGS: The heart size, pulmonary vascularity and hilar structures are normal. No infiltrate effusion or pneumothorax is seen. There is some minimal right apical scarring. Patient has had a previous sternotomy IMPRESSION: No acute cardiopulmonary process.
== END 2020-01-11 14:20 | disposition home or self-care (01) ==
LOC: JP.ED 13:04
DX: R06.02 Shortness of breath (principal)
CPT/HCPCS: 36415; 71046; 71046-26; 80048; 83880; 84484; 85025; 93005; 99285-25

== ENCOUNTER 2024-10-12 14:47 | Emergency (ER) | payer BC ==
[2024-10-12 15:23] VITALS: BP 133/74; PULSE 77
[2024-10-12] MEDS: Tetracaine HCl/PF 0.5% 4 ML Bottle EYEBOTH ONE (15:28)
== END 2024-10-12 15:48 | disposition home or self-care (01) ==
LOC: JP.ED 14:47
DX: S05.02XA Injury of conjunctiva and corneal abrasion without foreign body, left eye, initial encounter (principal); Z79.899 Other long term (current) drug therapy; Z87.891 Personal history of nicotine dependence; X58.XXXA Exposure to other specified factors, initial encounter
CPT/HCPCS: 99283

== ENCOUNTER 2025-07-28 11:14 | Emergency (ER) | payer BC ==
[2025-07-28 11:36] LABS: BASOPHILS PERCENT AUTO 0.2 % (0.1-1.3); EOSINOPHILS PERCENT AUTO 0.0 % (0.0-5.4); IMMATURE GRAN ABSOLUTE AUTO 0.03 K/uL (0.00-0.23); IMMATURE GRAN PERCENT AUTO 0.5 % (0.0-0.7); LYMPHOCYTES ABSOLUTE AUTO 0.33 K/uL (0.8-3.3); LYMPHOCYTES PERCENT AUTO 5.2 % (11.4-47.7); MONOCYTES ABSOLUTE AUTO 0.32 K/uL (0.20-0.90); MONOCYTES PERCENT AUTO 5.1 % (3.3-12.6); NEUTROPHILS ABSOLUTE AUTO 5.64 K/uL (1.0-7.6); NEUTROPHILS PERCENT AUTO 89.0 % (40.0-78.1); PLATELET COUNT,PLT 154 K/uL (130-375); RED BLOOD CELL COUNT 3.95 M/uL (4.14-5.76); WHITE BLOOD CELL COUNT,WBC 6.3 K/uL (3.2-11.0)
[2025-07-28 11:37] LABS: BASOPHILS ABSOLUTE AUTO 0.01 K/uL (0.00-0.10); EOSINOPHILS ABSOLUTE AUTO 0.00 K/uL (0.00-0.40)
[2025-07-28] MEDS: fentaNYL 50 MCG/ML SDV IVPUSH ONE ×2 (11:51→13:11)
[2025-07-28] MEDS: Ondansetron 4 MG/2 ML SDV IVPUSH ONE (11:51)
[2025-07-28 12:06] LABS: A/G RATIO 0.9 (1.2-2.2); ALANINE AMINOTRANSFERASE,ALT 51 U/L (12-78); ASPARTATE AMNIOTRANSFERASE,AST 24 U/L (15-37); BILIRUBIN TOTAL 0.4 mg/dL (0.2-1.0); BLOOD UREA NITROGEN,BUN 19 mg/dL (7-18); CARBON DIOXIDE,CO2 27 mmol/L (21-32); CHLORIDE,CL 99 mmol/L (100-108); CREATININE 0.9 mg/dL (0.8-1.3); ESTIMATED GFR 99 mL/min (>60); GLUCOSE RANDOM 169 mg/dL (74-106); POTASSIUM,K 4.2 mmol/L (3.6-5.2); PROTEIN TOTAL,TP 7.8 g/dL (6.4-8.2); SODIUM,NA 135 mmol/L (140-148)
[2025-07-28] MEDS: Iopamidol 612 MG/ML 100 ML Bottle IV PRN (12:50)
[2025-07-28] MEDS: Sodium Chloride 0.9% 10 ML Syringe FLUSH PRN (12:50)
[2025-07-28] MEDS: Hyoscyamine 0.125 MG Tab.SL SL ONE (14:25)
[2025-07-28 14:38] VITALS: BP 140/82; PULSE 75
[2025-07-28] MEDS: Alum Hydrox/Mag Hydrox/Simeth 15 ML, Lidocaine 2% 15 ML PO ONE (15:05)
== END 2025-07-28 15:19 | disposition home or self-care (01) ==
LOC: JP.ED 11:14
DX: R10.10 Upper abdominal pain, unspecified (principal); Z79.84 Long term (current) use of oral hypoglycemic drugs; Z79.899 Other long term (current) drug therapy
CPT/HCPCS: 36415; 74177; 80053; 83605; 83690; 85025; 96374; 96375; 96376; 99284; A9270; J2405; J2470; J3010; J3490; J7030; Q9967; J1171

== ENCOUNTER 2025-08-07 05:47 | Day surgery (SDC) | payer BC ==
[2025-08-07] MEDS ORDERED: Glycopyrrolate 0.2 MG/ML 5 ML MDV ONE (06:52)
[2025-08-07] MEDS ORDERED: Dexamethasone 4 MG/ML SDV ONE (06:52)
[2025-08-07] MEDS ORDERED: Succinylcholine 200 MG/10 ML MDV ONE (06:52)
[2025-08-07] MEDS ORDERED: Propofol 200 MG/20 ML SDV ONE (06:52)
[2025-08-07] MEDS ORDERED: Ondansetron 4 MG/2 ML SDV ONE (06:52)
[2025-08-07] MEDS ORDERED: fentaNYL 250 MCG/5 ML SDV ONE (06:54)
[2025-08-07] MEDS: Lactated Ringers 1,000 ML IV SCH (07:10)
[2025-08-07] MEDS ORDERED: Hydrocortisone Sodium Succinate 100 MG/2 ML SDV ONE (07:36)
[2025-08-07] MEDS ORDERED: fentaNYL 100 MCG/2 ML SDV ONE ×2 (08:06→08:26)
[2025-08-07] MEDS: Bupivacaine 0.25%/EPINEPHrine 1:200,000 30 ML SDV ONE (08:15)
[2025-08-07] MEDS ORDERED: Lactated Ringers 1,000 ML ONE (08:18)
[2025-08-07 11:02] VITALS: BP 135/76; PULSE 82
== END 2025-08-07 10:55 | disposition home or self-care (01) ==
LOC: JP.SDS 05:47
PROVIDERS: ATTEND Surgery
DX: K81.1 Chronic cholecystitis (principal); E11.9 Type 2 diabetes mellitus without complications; F17.200 Nicotine dependence, unspecified, uncomplicated; Z91.013 Allergy to seafood; Z79.899 Other long term (current) drug therapy
CPT/HCPCS: 00790; 47562; A9270; J0330; J0690; J1596; J1720; J2405; J2704; J2710; J3010; J7120; J0665; J1100; J3490

== ENCOUNTER 2025-08-23 08:04 | Inpatient (IN) | payer BC ==
[2025-08-23 08:27] LABS: BASOPHILS PERCENT AUTO 0.3 % (0.1-1.3); EOSINOPHILS ABSOLUTE AUTO 0.05 K/uL (0.00-0.40); EOSINOPHILS PERCENT AUTO 0.6 % (0.0-5.4); IMMATURE GRAN ABSOLUTE AUTO 0.04 K/uL (0.00-0.23); IMMATURE GRAN PERCENT AUTO 0.5 % (0.0-0.7); LYMPHOCYTES ABSOLUTE AUTO 1.24 K/uL (0.8-3.3); LYMPHOCYTES PERCENT AUTO 16.0 % (11.4-47.7); MONOCYTES ABSOLUTE AUTO 0.58 K/uL (0.20-0.90); MONOCYTES PERCENT AUTO 7.5 % (3.3-12.6); NEUTROPHILS ABSOLUTE AUTO 5.83 K/uL (1.0-7.6); NEUTROPHILS PERCENT AUTO 75.1 % (40.0-78.1); PLATELET COUNT,PLT 291 K/uL (130-375); RED BLOOD CELL COUNT 3.78 M/uL (4.14-5.76); WHITE BLOOD CELL COUNT,WBC 7.8 K/uL (3.2-11.0)
[2025-08-23 08:28] LABS: BASE EXCESS VENOUS 0.2 mm/L; BICARBONATE,VENOUS 24.1 mmol/L; O2 SATURATION VENOUS 60.9; OXYHEMOGLOBIN 59.0 %; PCO2 VENOUS 38.6 mm/Hg; PH,VENOUS 7.412 (7.350-7.450); TOTAL HEMOGLOBIN 11.5 g/dL (13.5-18.0)
[2025-08-23 08:29] LABS: BASOPHILS ABSOLUTE AUTO 0.02 K/uL (0.00-0.10); PO2 VENOUS 37.9 mm/Hg
[2025-08-23] MEDS ORDERED: Naloxone 0.4 MG/ML SDV IVPUSH PRN ×3 (08:41→13:46)
[2025-08-23 08:47] LABS: INR 1.0
[2025-08-23] MEDS: Ondansetron 4 MG/2 ML SDV IVPUSH ONE (08:49)
[2025-08-23 09:00] LABS: A/G RATIO 0.9 (1.2-2.2); ALANINE AMINOTRANSFERASE,ALT 56 U/L (12-78); ASPARTATE AMNIOTRANSFERASE,AST 22 U/L (15-37); BILIRUBIN TOTAL 0.3 mg/dL (0.2-1.0); BLOOD UREA NITROGEN,BUN 18 mg/dL (7-18); CARBON DIOXIDE,CO2 26 mmol/L (21-32); CHLORIDE,CL 103 mmol/L (100-108); CREATININE 1.0 mg/dL (0.8-1.3); EST CRCL DRUG DOSING (CG) 93.62 mL/min; ESTIMATED GFR 87 mL/min (>60); GLUCOSE RANDOM 95 mg/dL (74-106); POTASSIUM,K 3.5 mmol/L (3.6-5.2); PRO B-TYPE NATRIUR PEPT,BNPPRO 92 pg/mL (5-125); PROTEIN TOTAL,TP 7.4 g/dL (6.4-8.2); SODIUM,NA 141 mmol/L (140-148)
[2025-08-23 09:01] LABS: TROPONIN I HIGH SENSITIVITY < 4.0 pg/mL (<=60.3)
[2025-08-23 09:02] LABS: CORONAVIRUS COVID-19 NAA NEGATIVE (NEGATIVE); INFLUENZA A NAA NEGATIVE (NEGATIVE); INFLUENZA B NAA NEGATIVE (NEGATIVE); RESPIRATORY SYNCYTIAL VIR NAA NEGATIVE (NEGATIVE)
[2025-08-23] MEDS: Sodium Chloride 0.9% 10 ML Syringe FLUSH PRN (10:03)
[2025-08-23] MEDS: Iopamidol 755 Mg/ML 100 ML Bottle IV SCH (10:03)
[2025-08-23] MEDS: Piperacillin/Tazobactam/Dext 4.5 GM in Premix Bag 1 BAG IV ONE (11:39)
[2025-08-23] MEDS: Potassium Chloride 20 MEQ Tab.ER PO ONE (11:40)
[2025-08-23 11:41] LABS: APPEARANCE,URINE CLEAR (CLEAR); GLUCOSE,URINE 100 mg/dL (NEGATIVE); OCCULT BLOOD,URINE NEGATIVE (NEGATIVE)
[2025-08-23] MEDS ORDERED: Sennosides/Docusate Sodium 50-8.6 MG Tab PO PRN (13:46)
[2025-08-23] MEDS ORDERED: 50% Dextrose in Water 50 ML Syringe IV PRN (13:46)
[2025-08-23] MEDS ORDERED: Ondansetron 4 MG/2 ML SDV IV PRN (13:46)
[2025-08-23] MEDS ORDERED: Sodium Chloride 0.9% 10 ML Syringe FLUSH PRN (13:46)
[2025-08-23] MEDS ORDERED: Glucose Gel 15 GM in 37.5 GM Tube PO PRN (13:46)
[2025-08-23] MEDS ORDERED: Rizatriptan ODT 10 MG Tab PO PRN (14:02)
[2025-08-23] MEDS: Piperacillin/Tazobactam/Dext 4.5 GM in Premix Bag 1 BAG IV SCH (15:10)
[2025-08-23] MEDS ORDERED: Piperacillin/Tazobactam/Dext 4.5 GM in Premix Bag 1 BAG IV SCH (16:00)
[2025-08-23] MEDS: Insulin Lispro 100 Unit/ML 3 ML KwikPen SUBCUT SCH ×2 (16:39→16:44)
[2025-08-24 05:54] LABS: PLATELET COUNT,PLT 274.0 K/uL (130-375); RED BLOOD CELL COUNT 3.6 M/uL (4.14-5.76); WHITE BLOOD CELL COUNT,WBC 7.7 K/uL (3.2-11.0)
[2025-08-24 06:14] LABS: BLOOD UREA NITROGEN,BUN 14.0 mg/dL (7-18); CARBON DIOXIDE,CO2 29.0 mmol/L (21-32); CHLORIDE,CL 97.0 mmol/L (100-108); CREATININE 0.9 mg/dL (0.8-1.3); EST CRCL DRUG DOSING (CG) 104.02 mL/min; ESTIMATED GFR 99.0 mL/min (>60); GLUCOSE RANDOM 160.0 mg/dL (74-106); POTASSIUM,K 3.8 mmol/L (3.6-5.2); SODIUM,NA 134.0 mmol/L (140-148)
[2025-08-25] MEDS ORDERED: Propofol 200 MG/20 ML SDV ONE (08:40)
[2025-08-25 12:48] VITALS: BP 153/75; PULSE 92
== END 2025-08-25 13:01 | disposition home or self-care (01) | DRG 241 ==
LOC: JP.ED 08:04 → JP.MS 12:01
PROVIDERS: ADMIT Hospitalist; ATTEND Internal Medicine
PROC: 3E03329 Introduction of Other Anti-infective into Peripheral Vein, Percutaneous Approach (ICD-10-PCS; principal; 2025-08-23)
PROC: 0DB78ZX Excision of Stomach, Pylorus, Via Natural or Artificial Opening Endoscopic, Diagnostic (ICD-10-PCS; 2025-08-25)
DX: K29.00 Acute gastritis without bleeding (principal); J18.9 Pneumonia, unspecified organism; C34.90 Malignant neoplasm of unspecified part of unspecified bronchus or lung; C79.51 Secondary malignant neoplasm of bone; C79.31 Secondary malignant neoplasm of brain; C79.70 Secondary malignant neoplasm of unspecified adrenal gland; E32.8 Other diseases of thymus; E11.9 Type 2 diabetes mellitus without complications; M06.9 Rheumatoid arthritis, unspecified; H54.7 Unspecified visual loss; Z96.652 Presence of left artificial knee joint; Z98.49 Cataract extraction status, unspecified eye; Z98.890 Other specified postprocedural states; Z90.49 Acquired absence of other specified parts of digestive tract; Z95.5 Presence of coronary angioplasty implant and graft; Z79.1 Long term (current) use of non-steroidal anti-inflammatories (NSAID); Z79.2 Long term (current) use of antibiotics; Z79.899 Other long term (current) drug therapy; Z79.4 Long term (current) use of insulin; Z79.891 Long term (current) use of opiate analgesic
CPT/HCPCS: 00731-QZ; 36415; 71045; 71045-26; 71275; 74177; 80048; 80053; 81003; 82803; 82947; 83605; 83735; 83880; 84484; 85025; 85027; 85379; 85610; 86140; 87040; 87637; 88305; 88342; 93005; 93010; 96361; 96374; 96375; 99223; 99232; 99238; 99285; 99285-25; A9270-GY; J1171; J1271; J1650; J2405; J2543; J2704; J7030; J7050; J7512; Q9967